=== PATIENT | male | born 1995 | race African-American/Black ===

== ENCOUNTER 2020-11-30 00:01 | Emergency (ER) | payer OTHER ==
[~2020-11-30] VITALS: Ht 190.5 cm; Wt 137.5 kg
[2020-11-30 07:28] VITALS: BP 135/69
== END 2020-11-30 07:30 | disposition home or self-care (01) ==
LOC: M ED 00:01
DX: J06.9 Acute upper respiratory infection, unspecified (principal); M79.10 Myalgia, unspecified site; R43.9 Unspecified disturbances of smell and taste
CPT/HCPCS: 99284; U0003